=== PATIENT | female | born 1985 | race Caucasian/White ===

== ENCOUNTER → 2019-08-15 11:05 | Outpatient (BNVA) | payer BC, SELFPAY | PROVIDERS: Family Provider Nurse Practitioner Family; PCP Nurse Practitioner Family; Visit Provider Obstetrics & Gynecology | DX: Z12.4 Encounter for screening for malignant neoplasm of cervix (principal) | CPT/HCPCS: 88175 ==

== ENCOUNTER → 2020-02-12 11:43 | Outpatient (BNVA) | payer BC, SELFPAY | PROVIDERS: Family Provider Nurse Practitioner Family; PCP Nurse Practitioner Family; Visit Provider Registered Nurse | DX: L85.3 Xerosis cutis (principal) | CPT/HCPCS: 80053; 85025; 85651; 86141; 86431 ==

== ENCOUNTER → 2020-03-09 09:28 | Outpatient (BNVA) | payer BC, SELFPAY | PROVIDERS: Family Provider Nurse Practitioner Family; PCP Nurse Practitioner Family; Visit Provider Internal Medicine | DX: L30.1 Dyshidrosis [pompholyx] (principal); L85.3 Xerosis cutis; R53.83 Other fatigue | CPT/HCPCS: 99204 ==

== ENCOUNTER → 2020-03-10 10:17 | Outpatient (BNVA) | payer BC, SELFPAY | PROVIDERS: Family Provider Nurse Practitioner Family; PCP Nurse Practitioner Family; Visit Provider Internal Medicine Rheumatology | DX: L30.1 Dyshidrosis [pompholyx] (principal); L85.3 Xerosis cutis | CPT/HCPCS: 82533; 82552; 82784; 83516; 84443; 86812 ==

== ENCOUNTER → 2020-07-24 09:10 | Outpatient (BNVA) | payer BC, SELFPAY | PROVIDERS: Family Provider Nurse Practitioner Family; PCP Nurse Practitioner Family; Visit Provider Registered Nurse | DX: J06.9 Acute upper respiratory infection, unspecified (principal) | CPT/HCPCS: 87635 ==

== ENCOUNTER → 2021-09-06 13:54 | Outpatient (BNVA) | payer BC, SELFPAY | PROVIDERS: Family Provider Nurse Practitioner Family; PCP Nurse Practitioner Family; Visit Provider Obstetrics & Gynecology | DX: Z01.419 Encounter for gynecological examination (general) (routine) without abnormal findings (principal) | CPT/HCPCS: 88175 ==

== ENCOUNTER → 2021-09-07 15:47 | Outpatient (BNVA) | payer BC, SELFPAY | PROVIDERS: Family Provider Nurse Practitioner Family; PCP Nurse Practitioner Family; Visit Provider Registered Nurse | DX: N39.0 Urinary tract infection, site not specified (principal) | CPT/HCPCS: 81000; 87077; 87086; 87184 ==

== ENCOUNTER 2021-09-22 07:23 | Outpatient (CLI) | payer BC, SELFPAY ==
--- NOTE | 2021-09-22 07:25 | MM_ITS ---
WS: [id number] DIAGNOSTIC BILATERAL 3D TOMOSYNTHESIS DIGITAL MAMMOGRAM WITH CAD RIGHT breast ultrasound, limited HISTORY: N63.0 - Unspecified lump in unspecified breast COMPARISON: None available. TECHNIQUE: Bilateral craniocaudad, mediolateral oblique, and mediolateral views are submitted. Spot c ompression RIGHT CC. Computer aided detection utilized. Breast composition: There are scattered areas of fibroglandular density. Palpable marker is placed ov er the upper outer quadrant of the RIGHT breast at a middle depth. There is no underlying mass identi fied or distortion. There is a normal parenchymal pattern of both breasts. RIGHT breast ultrasound, limited. Ultrasound of the RIGHT breast at 10:00 as directed by the patient is obtained. There is a benign-tor earing lymph node at the site of the palpable abnormality, 5 cm from the nipple. Lymph node measures 1.2 x 0.8 x 0.6 cm. No additional mass or shadowing. MM/[place] [id number] IMPRESSION: BI-RADS: 2-Benign FOLLOW UP: 1 Year Follow-up
== END 2021-09-22 07:24 | disposition home or self-care (01) ==
LOC: RAD 07:24
PROVIDERS: Family Provider Nurse Practitioner Family; PCP Nurse Practitioner Family; Visit Provider Obstetrics & Gynecology
DX: N63.0 Unspecified lump in unspecified breast (principal)
CPT/HCPCS: 76642; 77062

== ENCOUNTER → 2022-03-03 16:33 | Outpatient (BNVA) | payer OTHER, SELFPAY | PROVIDERS: Family Provider Nurse Practitioner Family; PCP Registered Nurse; Visit Provider Registered Nurse | DX: L30.1 Dyshidrosis [pompholyx] (principal); L85.3 Xerosis cutis | CPT/HCPCS: 88304 ==

== ENCOUNTER 2022-03-30 13:13 | Outpatient (CLI) | payer OTHER, SELFPAY ==
--- NOTE | 2022-03-30 13:45 | MR_ITS ---
WS: [id number] MRI LUMBAR SPINE NONCONTRAST HISTORY: Low back and LEFT hip and leg pain. Numbness for one month. COMPARISON: None available. TECHNIQUE: Sagittal and axial multisequence imaging is submitted. Normal lumbar alignment with no compression fractures or marrow edema. Mild disc space narrowing and desiccation at L4-5 and L5-S1. There is a small amount of fatty replace ment along the endplates of L5 and S1. Conus terminates normally at L1-2 disc level. L1-L2: Normal. L2-L3: Normal. L3-L4: Mild ligamentum flavum and facet arthritis. No stenosis. L4-L5: Large central disc protrusion extends greatest to the RIGHT. Disc protrusion deforms the ventr al thecal sac and also contacts and displaces the L5 nerve roots. Slightly greater displacement of th e RIGHT L5 nerve root. No foraminal stenosis. L5-S1: Large central disc protrusion with annular disc bulging. Central disc protrusion extends just very slightly cephalad to the disc level. There is significant deformity of the ventral thecal sac an d LEFT thecal sac with encroachment and displacement of the LEFT S1 nerve root. Mild central stenosis with moderate to severe LEFT subarticular recess stenosis and encroachment. Only mild RIGHT foramina l narrowing. There is very slight contact on the RIGHT S1 nerve root also. MR/MR lumbar spine wo con* [id number] IMPRESSION: 1. Large central disc protrusion superimposed on annular disc bulging at L5-S1 . The central disc protrusion contacts the S1 nerve roots bilaterally. 2. There is significant contact and displacement of the LEFT S1 nerve root wit h severe LEFT subarticular recess stenosis. Only mild encroachment upon the RIG HT S1 nerve root. 3. Large central disc protrusion at L4-5 extends greatest to the RIGHT. Centra l stenosis and disc contacting displacing the L5 nerve roots, RIGHT greater sarina n LEFT.
== END 2022-03-30 13:14 | disposition home or self-care (01) ==
LOC: RAD 13:14
PROVIDERS: Family Provider Nurse Practitioner Family; PCP Registered Nurse; Visit Provider Registered Nurse
DX: M51.36 Other intervertebral disc degeneration, lumbar region (principal); M51.27 Other intervertebral disc displacement, lumbosacral region; M48.00 Spinal stenosis, site unspecified; M51.26 Other intervertebral disc displacement, lumbar region
CPT/HCPCS: 72148

== ENCOUNTER 2022-09-29 13:44 | Outpatient (CLI) | payer OTHER, SELFPAY ==
--- NOTE | 2022-09-29 14:03 | MR_ITS ---
WS: [id number] MRI LUMBAR SPINE WITH CONTRAST TECHNIQUE: Sagittal T1, T2 and STIR imaging. Axial T1 and T2 imaging. Post gadolinium imaging was obt ained. CLINICAL INFORMATION: OTHER SPECIFIED POSTPROCEDURAL STATES COMPARISON: 2021 FINDINGS: Mild lumbar curve. No acute compression. Disc bulging with L4-L5 and L5-S1. Postoperative changes L5- S1 with laminectomy defects from previous. Resection of the previously described L5 disc herniation L1-L2: Mild annular bulging. Spinal canal and foramen are patent. L2-L3: Mild annular bulging. Spinal canal and foramen are patent. L3-L4: Mild annular bulging. Mild facet arthropathy. Spinal canal and foramen are patent. L4-L5: Progressed central disc protrusion with impingement on the traversing L5 nerve roots bilateral ly. Moderate central canal stenosis. Foramen are patent. Impingement on traversing L5 nerve roots, wo rse in the RIGHT. Mild facet arthropathy. L5-S1: Postoperative changes LEFT L5-S1 hemilaminectomy with postoperative enhancement. Enhancing gra nulation tissue about the LEFT S1 nerve root. Slight effacement of ventral thecal sac. Foramen are pa tent. Moderate facet arthropathy. Visualized pelvic bony structures: Normal. Paravertebral soft tissues: Normal. MR/MR lumbar spine wo/w con [id number] IMPRESSION: 1. Postoperative changes LEFT L5-S1 hemilaminectomy with postoperative enhance ment new from previous. Previously described disc extrusion has been resected. No large enhancing recurrent disc extrusion. Enhancing granulation tissue about the LEFT S1 nerve root. Slight effacement of ventral thecal sac. Foramen are p atent. 2. Progressed central disc protrusion with impingement on the traversing L5 ne rve roots bilaterally RIGHT greater than LEFT. Progressed moderate central sonia l stenosis at this level. 3. Mild facet arthropathy L3-L5. 4. No other acute findings.
[2022-09-29] MEDS: gadobenate dimeglumine 20 mL vial IV (14:41)
== END 2022-09-29 13:45 | disposition home or self-care (01) ==
LOC: RAD 13:52
PROVIDERS: PCP Registered Nurse; Visit Provider Neurological Surgery
DX: M48.061 Spinal stenosis, lumbar region without neurogenic claudication (principal); Z98.890 Other specified postprocedural states; M51.36 Other intervertebral disc degeneration, lumbar region; M54.9 Dorsalgia, unspecified; R20.2 Paresthesia of skin; M51.26 Other intervertebral disc displacement, lumbar region; M47.816 Spondylosis without myelopathy or radiculopathy, lumbar region
CPT/HCPCS: 72158; A9577

== ENCOUNTER → 2024-07-05 08:10 | Outpatient (BNVA) | payer OTHER, SELFPAY | PROVIDERS: PCP Registered Nurse; Visit Provider Physician Assistant | DX: M25.531 Pain in right wrist (principal); M79.89 Other specified soft tissue disorders; R22.31 Localized swelling, mass and lump, right upper limb | CPT/HCPCS: 73110 ==